=== PATIENT | female | born 1945 | race Caucasian/White ===

== ENCOUNTER 2019-02-21 06:00 | Day surgery (SDC) | payer MEDICARE, BC ==
[2019-02-20 11:32] LABS: BASOPHILS 0.2 % (0-2); EOSINOPHILS 1.8 % (0-7); HEMATOCRIT 40.1 % (36.0-48.0); HEMOGLOBIN 13.6 g/dL (12-16); IMMATURE GRANULOCYTES 0.2 % (0-5); LYMPHOCYTES 20.5 % (15-50); MCH 31.3 pg (26.0-34.0); MCHC 33.9 g/dL (31.0-37.0); MCV 92.2 fL (80.0-100.0); MEAN PLATELET VOLUME 8.7 fL (7.4-10.4); MONOCYTES 9.5 % (2-11); NEUTROPHILS 67.8 % (40-80); PLATELET COUNT 219 10x3/uL (130-400); RBC 4.35 10x6/uL (4.00-5.40); RDW 13.4 % (11.5-14.5); WBC 6.2 10x3/uL (4.8-10.8)
[2019-02-20 11:35] LABS: ANION GAP 9.9 mmol/L (8-16); CALCIUM 9.2 mg/dL (8.5-10.1); CARBON DIOXIDE 29.6 mmol/L (21.0-32.0); CREATININE - SERUM 0.8 mg/dL (0.6-1.3); POTASSIUM - SERUM 3.5 mmol/L (3.5-5.1)
[2019-02-20 11:38] LABS: APTT 29.8 SECONDS (22.8-39.4); INR 1.01 (0.85-1.17); PROTIME 12.8 SECONDS (11.6-15.0)
[~2019-02-21] VITALS: Ht 165.1 cm; Wt 82.6 kg
--- NOTE | ~2019-02-21 | OP ---
PATIENT NAME: ADRIAN GUERRA MEDICAL RECORD: [id number] :47 LOCATION:D.OPS ADMISSION DATE: SURGEON: NOE KAPADIA MD DATE OF OPERATION: 02/21/2019 PREOPERATIVE DIAGNOSES: 1. Hemorrhoids. 2. Hypercholesterolemia. POSTOPERATIVE DIAGNOSES: 1. Hemorrhoids. 2. Hypercholesterolemia. PROCEDURE: 1. PPH stapled hemorrhoidectomy. 2. Excision of anterior anal mass. SURGEON: Noe Kapadia MD REPORT OF PROCEDURE: The patient was placed in the jackknife prone position. As we inspected the perianal region, there was noted to be evisceration of internal hemorrhoids with a slight prolapse. On the anterior aspect of the anus, there was a large pedunculated mass of tissue that appeared to be hemorrhoidal. This was very friable, so we ended up just excising it down to its base. This was done using electrocautery and any bleeding from the site was treated with electrocautery. We then inserted the PPH anoscope and sutured it down on all 4 sides with 3-0 silks. A 2-0 Prolene was used as a pursestring on the distal margin of the rectum. Once this was in place, then the stapler was inserted and fired, removing a large ring of tissue. There was no evidence of any bleeding at the staple ring and the ring appeared to be intact. We irrigated out the wound thoroughly with normal saline. The anoscope was then removed and it showed that the hemorrhoidal tissue had been pulled back down into the anus appropriately. We then placed a piece of Gelfoam in the anus that had been dipped in [place]. COMPLICATIONS: None. CONDITION: Stable. ANESTHESIA: General endotracheal. BLOOD LOSS: Minimal. TRANSINT:[id number] Voice Confirmation ID: [id number] DOCUMENT ID: [id number] NOE KAPADIA MD CC: CAESAR AGUILAR MD and MARTY BRUMFIELD [id number] DICTATION DATE: 02/21/19901 [employer] OPERATOR: 02/21/19936 [facility] [address] [id number]
[~2019-02-21 06:00] MED LIST: LINZESS PO; OMEPRAZOLE CAP 20M PO; ZOLOFT25 MG PO
[2019-02-21 06:44] VITALS: BP 136/63; Ht 165.1 cm; Wt 82.6 kg
[2019-02-21] MEDS ORDERED: HYDROCODON-ACE1 EA10 PO (08:55)
--- NOTE | 2019-02-21 09:32 | NUR ---
0912 - PT STATES "I CAN'T BREATHE" THOUGH SPO2 REMAINS AT 100% ON 10 LPM VIA SM. STATES SHE IS CLAUSTRIPHOBIC. SWITCHED TO NS @ 4 LPM, STRIDOR AND WHEEZING SOUNDS NOTED. UPDRAFTS ORDERED AND IMPLEMENTED. PT STATES SHE "FEELS BETTER", SPO2 100% ON 2 LPM VIA NC. PT STATES SHE HAS EPISODES OF ANXIETY, "POSSIBLE" THIS WAS RELATED. CONTINUE TO MONITOR.
--- NOTE | 2019-02-21 10:02 | NUR ---
REC'D FROM . FAMILY AT BEDSIDE. C/O PAIN 04/23. ORDER RECEIVED FOR NORCO 10/325MG PO.
--- NOTE | 2019-02-21 10:10 | NUR ---
FL TRAY BROUGHT TO PT.
--- NOTE | 2019-02-21 10:16 | NUR ---
NORCO 10/325MG PO ADMINISTERED PER ORDERS FOR C/O PAIN 04/23.
--- NOTE | 2019-02-21 10:39 | NUR ---
TOLERATING FL TRAY. FAMILY AT BEDSIDE. DENIES NEEDS.
--- NOTE | 2019-02-21 11:09 | NUR ---
TOLERATED FL DIET. RATES PAIN 4/10 POST PAIN MED. FAMILY AT BEDSIDE. RELATES NO URGE TO VOID AT THIS TIME. ENCOURAGED FLUIDS AND IV RATE INCREASED.
--- NOTE | 2019-02-21 12:10 | NUR ---
PT VOIDED SCANT AMT. RELATES IT FEELS LIKE IT IS RIGHT THERE BUT THEN IS NOT ABLE TO URINATE. FAMILY AT BEDSIDE.
--- NOTE | 2019-02-21 14:20 | NUR ---
UP TO BATHROOM WITH NO SUCCESS. FAMILY AT BEDSIDE.
--- NOTE | 2019-02-21 15:40 | NUR ---
PERFORMED BLADDER SCAN WITH 405ML URINE. DR KAPADIA PAGED. NUMBER LEFT FOR CALLBACK.
--- NOTE | 2019-02-21 15:50 | NUR ---
IV DC'D WITH CATHETER INTACT.
--- NOTE | 2019-02-21 16:20 | NUR ---
NO CALLBACK FROM DR KAPADIA. CALLED ON CELL PHONE. RELATES TO IN/OUT CATH PATIENT AND DC HOME AND FOR HER TO RETURN TO THE ED IF UNABLE TO VOID AFTER DC OR IF PATIENT FEELS SHE NEEDS TO BE OBSERVED OVERNIGHT THEN CAN ADMIT HER TO OBSERVATION. PATIENT RELATED SHE DID NOT WANT TO STAY.
--- NOTE | 2019-02-21 17:20 | NUR ---
IN/OUT CATH PERFORMED PER ORDERS. IMMEDIATE RETURN OF CLEAR YELLOW URINE. GUNN DC'D AFTER BLADDER EMPTY.
--- NOTE | 2019-02-21 17:40 | NUR ---
DC'D HOME WITH FAMILY VIA PRIVATE VEHICLE. TAKEN TO VEHICLE VIA WC. STABLE AT TIME OF DC.
== END 2019-02-21 17:40 | disposition home or self-care (01) ==
LOC: D.OPS 06:00 → D.PAN 08:00 → D.OPS 17:40
PROVIDERS: Anesthesiology; ATTEND Surgery
DX: K64.8 Other hemorrhoids (principal); E78.00 Pure hypercholesterolemia, unspecified; Z01.812 Encounter for preprocedural laboratory examination

== ENCOUNTER → 2019-12-10 09:56 | Outpatient (CLI) | payer MEDICARE, BC ==
[2019-02-21 06:44] VITALS: BMI 30.3
[~2019-12-10 09:56] MED LIST changes: +HYDROCODON-ACE1 EA10 PO
[2019-12-11 11:10] LABS: IMMUNOGLOBULIN A 74 mg/dL (64-422); IMMUNOGLOBULIN G 500 mg/dL (700-1600); IMMUNOGLOBULIN M 137 mg/dL (26-217)
== END | disposition home or self-care (01) ==
LOC: D.LAB 09:56 → D.RT 10:30
PROVIDERS: ATTEND Internal Medicine Pulmonary Disease
DX: J44.9 Chronic obstructive pulmonary disease, unspecified (principal); J18.9 Pneumonia, unspecified organism

== ENCOUNTER → 2019-12-25 12:15 | Outpatient (CLI) | payer MEDICARE, BC ==
[2019-02-21 06:44] VITALS: BMI 30.3
[2019-12-25 13:32] LABS: BASOPHILS 0.6 % (0-2); EOSINOPHILS 4.8 % (0-7); HEMATOCRIT 35.7 % (36.0-48.0); HEMOGLOBIN 12.4 g/dL (12-16); LYMPHOCYTES 17.3 % (15-50); MCH 31.5 pg (26.0-34.0); MCHC 34.7 g/dL (31.0-37.0); MCV 90.6 fL (80.0-100.0); MEAN PLATELET VOLUME 8.4 fL (7.4-10.4); MONOCYTES 12.2 % (2-11); NEUTROPHILS 65.1 % (40-80); RBC 3.94 10x6/uL (4.00-5.40); RDW 13.2 % (11.5-14.5); WBC 5.3 10x3/uL (4.8-10.8)
[2019-12-25 14:11] LABS: PLATELET COUNT 274 10x3/uL (130-400)
[2019-12-26 10:10] LABS: ANA REFLEX - DIRECT Negative (Negative)
[2019-12-27 06:09] LABS: ANGIOTENSIN CONVERTING ENZYME 32 U/L (14-82)
[2019-12-30 17:08] LABS: FUNGAL - ASP FLAVUS Negative (Neg:<1:1); FUNGAL - ASP NIGER Negative (Neg:<1:1); FUNGAL - ASPER FUMIGATUS Negative (Neg:<1:1)
== END | disposition home or self-care (01) ==
LOC: D.LABREF 12:15
PROVIDERS: ATTEND Internal Medicine Pulmonary Disease
DX: R91.8 Other nonspecific abnormal finding of lung field (principal)